=== PATIENT | female | born 1985 | race Caucasian/White ===

== ENCOUNTER 2019-06-11 12:24 | Emergency (ER) | payer OTHER ==
[2019-06-11 12:36] VITALS: BP 101/70; PULSE 81; TEMP 99.1; BMI 35.4
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
--- NOTE | 2019-06-11 12:45 | PDOC ---
Attending Attestation - Resident Resident Name: Kathy Gonzalez - HPI HPI: 06/13/19 09:12 Pt presents to the ED complaining of a one month history of R leg pain after falling down and escalator. PAtient has been ambulating since the injury, but states that today she had somewhat increased pain. Denies new injuries. - Physicial Exam PE: 06/13/19 09:29 agree with resident exam. Patient is alert and oriented and in no acute distress. tenderness at the knee and over the femur without deformity or ecchymosis. + well healed knee replacement scar. + slight effusion. Range of motion unchanged from previous as per patient. 06/13/19 09:29 - Medical Decision Making 06/13/19 09:30 pt presents to the ED complaining of subacute leg pain. Xrays show no fracture or other acute injury. PAtient is ambulatory. Will discharge home with instructions to follow up with PMD.
[2019-06-11] MEDS ORDERED: ACETAMINOPHEN 325 MG TABLET (FP) PO ONE (13:07)
[2019-06-11] MEDS ORDERED: KETOROLAC TROMETHAMINE 15 MG/ML VIAL IM ONE (13:07)
[2019-06-11] MEDS ORDERED: KETOROLAC TROMETHAMINE 15 MG/ML VIAL ONE (13:11)
[2019-06-11] MEDS ORDERED: ACETAMINOPHEN 325 MG TABLET (FP) ONE (13:11)
== END 2019-06-11 15:10 | disposition home or self-care (01) ==
LOC: FER 12:24
PROC: 3E0233Z Introduction of Anti-inflammatory into Muscle, Percutaneous Approach (ICD-10-PCS; principal; 2019-06-11)
DX: M79.605 Pain in left leg (principal); W10.9XXA Fall (on) (from) unspecified stairs and steps, initial encounter; Y93.89 Activity, other specified; Y92.89 Other specified places as the place of occurrence of the external cause
CPT/HCPCS: 73552-TC-LT-FY; 73564-TC-LT-FY; 84703; 99283-25

== ENCOUNTER 2021-06-13 14:03 | Emergency (ER) | payer OTHER ==
[2021-06-13 14:20] VITALS: BMI 31.2
[2021-06-13] MEDS ORDERED: ONDANSETRON 4 MG/2 ML VIAL IVPUSH ONE (15:19)
[2021-06-13] MEDS ORDERED: PANTOPRAZOLE SODIUM 40 MG VIAL IVPUSH ONE (15:19)
[2021-06-13] MEDS ORDERED: ACETAMINOPHEN 1000 MG/100 ML VIAL (NON FORMULARY) IVPB ONE (15:20)
[2021-06-13] MEDS ORDERED: SODIUM CHLORIDE 0.9% 500 ML INFUS.BAG IV ONE (15:26)
[2021-06-13] MEDS ORDERED: ACETAMINOPHEN INJECTION 100 ML IVPB ONE (16:07)
[2021-06-13] MEDS ORDERED: ONDANSETRON 4 MG/2 ML VIAL ONE (16:08)
[2021-06-13] MEDS ORDERED: PANTOPRAZOLE SODIUM 40 MG VIAL ONE (16:08)
[2021-06-13 16:33] LABS: BASO % 0.3 % (0-2.0); EOS % 1.1 % (0-4.5); HEMATOCRIT 39.2 % (32.4-45.2); HEMOGLOBIN 13.2 GM/dL (10.7-15.3); LYMPH % 21.3 % (8-40); MCH 30.2 pg (25.7-33.7); MCHC 33.8 g/dl (32.0-36.0); MEAN CELL VOLUME 89.3 fl (80-96); MEAN PLT VOLUME 8.8 fl (7.5-11.1); MONO % 11.8 % (3.8-10.2); NEUT % 65.5 % (42.8-82.8); PLATELET COUNT 219 10^3/uL (134-434); RBC 4.39 M/mm3 (3.60-5.2); RDW 14.5 % (11.6-15.6)
[2021-06-13 16:42] LABS: ALBUMIN 3.5 g/dl (3.4-5.0); BLOOD UREA NITROGEN 6.9 mg/dL (7-18)
[2021-06-13 16:45] LABS: CREATININE 0.6 mg/dL (0.55-1.3)
[2021-06-13 16:46] LABS: BILIRUBIN,TOTAL 0.6 mg/dL (0.2-1); TOT PROT 7.4 g/dl (6.4-8.2)
[2021-06-13 17:28] VITALS: TEMP 98.4
[2021-06-13 19:50] LABS: EPI CELLS 29 /uL (0-25.1); HYALINE CASTS 23 /uL (0-3.1); URINE APPEARANCE CLOUDY; URINE BACTERIA 426 /uL (0-1359); URINE BILIRUBIN 1+ (NEGATIVE); URINE COLOR DK YELLOW; URINE GLUCOSE (UA) NEGATIVE (NEGATIVE); URINE KETONE 3+ (NEGATIVE); URINE LEUK ESTERASE NEGATIVE (NEGATIVE); URINE NITRITE NEGATIVE (NEGATIVE); URINE PROTEIN 1+ (NEGATIVE); URINE RBC 12 /uL (0-23.9)
[2021-06-13 22:24] LABS: URINE WBC 175.5 /uL (0-25.8)
[2021-06-13 23:30] VITALS: BP 112/64; PULSE 70
== END 2021-06-13 23:25 | disposition home or self-care (01) ==
LOC: JER 14:03
PROC: 3E0333Z Introduction of Anti-inflammatory into Peripheral Vein, Percutaneous Approach (ICD-10-PCS; principal; 2021-06-13)
PROC: 3E033GC Introduction of Other Therapeutic Substance into Peripheral Vein, Percutaneous Approach (ICD-10-PCS; 2021-06-13)
PROC: 3E033GC Introduction of Other Therapeutic Substance into Peripheral Vein, Percutaneous Approach (ICD-10-PCS; 2021-06-13)
DX: R10.13 Epigastric pain (principal)
CPT/HCPCS: 36415; 74177-TC; 80053; 81003; 83690; 84703; 85025; 99285-25; J0131; Q9967

== ENCOUNTER 2021-07-10 09:02 | Emergency (ER) | payer OTHER ==
[2021-07-10 09:15] VITALS: BP 117/83; PULSE 94; TEMP 98; BMI 29.3
[2021-07-10] MEDS ORDERED: KETOROLAC TROMETHAMINE 30 MG/1 ML VIAL IM ONE (10:17)
[2021-07-10] MEDS ORDERED: KETOROLAC TROMETHAMINE 30 MG/1 ML VIAL ONE (10:37)
[2021-07-10 11:05] LABS: BASO % 0.4 % (0-2.0); EOS % 0.5 % (0-4.5); HEMATOCRIT 34.4 % (32.4-45.2); HEMOGLOBIN 11.7 GM/dL (10.7-15.3); LYMPH % 21.1 % (8-40); MCH 30.2 pg (25.7-33.7); MEAN CELL VOLUME 88.8 fl (80-96); MEAN PLT VOLUME 7.7 fl (7.5-11.1); MONO % 9.2 % (3.8-10.2); NEUT % 68.8 % (42.8-82.8); PLATELET COUNT 235 10^3/uL (134-434); RBC 3.88 M/mm3 (3.60-5.2); RDW 15.4 % (11.6-15.6); WHITE BLOOD COUNT 4.4 K/mm3 (4.0-10.0)
[2021-07-10 11:18] LABS: ALBUMIN 3.4 g/dl (3.4-5.0); CALCIUM 8.4 mg/dL (8.5-10.1)
[2021-07-10 11:19] LABS: BLOOD UREA NITROGEN 5.6 mg/dL (7-18); MAGNESIUM 1.8 mg/dL (1.8-2.4)
[2021-07-10 11:22] LABS: CREATININE 0.5 mg/dL (0.55-1.3)
[2021-07-10 11:23] LABS: BILIRUBIN,TOTAL 0.8 mg/dL (0.2-1); TOT PROT 7.2 g/dl (6.4-8.2)
[2021-07-17 03:08] LABS: VITAMIN E (B-GAMMA) 0.8 mg/L (0.7-4.9)
== END 2021-07-10 12:40 | disposition home or self-care (01) ==
LOC: JERFT 09:02
PROC: 3E0233Z Introduction of Anti-inflammatory into Muscle, Percutaneous Approach (ICD-10-PCS; principal; 2021-07-10)
DX: G90.09 Other idiopathic peripheral autonomic neuropathy (principal)
CPT/HCPCS: 36415; 80053; 82180; 82306; 82607; 82746; 83735; 84207; 84252; 84443; 84446; 84590; 84597; 85025; 86780; 99284-25

== ENCOUNTER 2021-07-18 15:40 | Emergency (ER) | payer OTHER ==
[2021-07-18 15:48] VITALS: TEMP 98.2; BMI 26.4
[2021-07-18] MEDS ORDERED: diazePAM 5 MG TABLET PO ONE (17:11)
[2021-07-18] MEDS ORDERED: ACETAMINOPHEN 500 MG TABLET (FP) PO ONE (17:21)
[2021-07-18] MEDS ORDERED: ACETAMINOPHEN 325 MG TABLET (FP) ONE (17:27)
[2021-07-18] MEDS ORDERED: diazePAM 5 MG TABLET ONE (17:28)
[2021-07-18 18:29] VITALS: BP 128/80; PULSE 78
== END 2021-07-18 18:29 | disposition home or self-care (01) ==
LOC: JER 15:40
DX: G62.9 Polyneuropathy, unspecified (principal)
CPT/HCPCS: 99283-25

== ENCOUNTER 2023-08-23 13:20 | Emergency (ER) | payer OTHER ==
[2023-08-23 13:29] VITALS: BP 91/47; PULSE 74; RESP 20; TEMP 98.9; BMI 26.5
[2023-08-23 15:34] LABS: EPI CELLS 33 /uL (0-25.1); HYALINE CASTS 1 /uL (0-3.1); PH,URINE 5.5 (5.0-8.0); URINE APPEARANCE CLOUDY; URINE BACTERIA >9,000 /uL (0-1359); URINE BILIRUBIN NEGATIVE (NEGATIVE); URINE COLOR YELLOW; URINE GLUCOSE (UA) NEGATIVE (NEGATIVE); URINE KETONE NEGATIVE (NEGATIVE); URINE LEUK ESTERASE 2+ (NEGATIVE); URINE NITRITE POSITIVE (NEGATIVE); URINE PROTEIN TRACE (NEGATIVE); URINE RBC 241 /uL (0-23.9); URINE UROBILINOGEN 0.2 mg/dL (0.2-1.0); URINE WBC 69 /uL (0-25.8)
[2023-08-23 15:37] LABS: BASO % 0.2 % (0-2.0); HEMATOCRIT 33.9 % (32.4-45.2); HEMOGLOBIN 11.2 GM/dL (10.7-15.3); LYMPH % 25.4 % (8-40); MCH 28.5 pg (25.7-33.7); MCHC 33.1 g/dl (32.0-36.0); MEAN CELL VOLUME 86.1 fl (80-96); MEAN PLT VOLUME 8.3 fl (7.5-11.1); MONO % 10.4 % (3.8-10.2); PLATELET COUNT 235 10^3/uL (134-434); RBC 3.93 M/mm3 (3.60-5.2); RDW 15.1 % (11.6-15.6); WHITE BLOOD COUNT 5.5 K/mm3 (4.0-10.0)
[2023-08-23 15:54] LABS: POTASSIUM 3.7 mmol/L (3.5-5.1)
[2023-08-23 15:56] LABS: CALCIUM 8.9 mg/dL (8.5-10.1)
[2023-08-23 15:57] LABS: ALBUMIN 3.6 g/dl (3.4-5.0)
[2023-08-23 16:00] LABS: CREATININE 0.6 mg/dL (0.55-1.3)
[2023-08-23 16:01] LABS: TOT PROT 7.1 g/dl (6.4-8.2)
[2023-08-23 16:02] LABS: BILIRUBIN,TOTAL 0.4 mg/dL (0.2-1)
[2023-08-23] MEDS ORDERED: CEPHALEXIN MONOHYDRATE 500 MG CAPSULE (UD) PO ONE (17:36)
[2023-08-23] MEDS ORDERED: CEPHALEXIN MONOHYDRATE 500 MG CAPSULE (UD) ONE (18:12)
== END 2023-08-23 20:00 | disposition home or self-care (01) ==
LOC: JER 13:20
DX: O20.9 Hemorrhage in early pregnancy, unspecified (principal); O26.891 Other specified pregnancy related conditions, first trimester; R10.9 Unspecified abdominal pain; Z3A.08 8 weeks gestation of pregnancy
CPT/HCPCS: 36415; 76817-TC; 80053; 81003; 84702; 85025; 86850; 86900; 86901; 87086; 87186; 99284-25

== ENCOUNTER 2024-03-29 06:05 | Inpatient (IN) | payer OTHER ==
[2024-03-29] MEDS: CITRIC ACID/SODIUM CITRATE 30 ML UNIT-DOSE CUP PO ONE (07:00)
[2024-03-29 07:07] VITALS: BMI 31.5
[2024-03-29] MEDS: ELECTROLYTE-148 SOLN 500 ML IV SCH (07:42)
[2024-03-29] MEDS: ELECTROLYTE-148 SOLN 500 ML IV ONE (07:42)
[2024-03-29] MEDS ORDERED: OXYTOCIN 30 UNITS in 0.9% NS 30 UNIT/500 ML INFUS.BAG IVPB ONE (08:08)
[2024-03-29] MEDS ORDERED: morphine SULFATE/PF 1 MG/2 ML (2cc Syringe - QUVA) ONE (08:09)
[2024-03-29] MEDS ORDERED: FENTANYL CITRATE/PF 50 MCG/ML VIAL ONE (08:09)
[2024-03-29] MEDS ORDERED: LIGASURE IMPACT TP ONE (08:16)
[2024-03-29] MEDS ORDERED: ceFAZolin SODIUM 1 GM VIAL ONE (08:28)
[2024-03-29] MEDS ORDERED: ePHEDrine SULFATE 50 MG/1 ML AMPULE ONE (08:28)
[2024-03-29] MEDS ORDERED: OXYTOCIN 10 UNITS/ML VIAL ONE (08:38)
[2024-03-29] MEDS ORDERED: OXYTOCIN 20 UNITS in 0.9% NS 20 UNIT/1,000 ML INFUS.BAG IV ONE (09:34)
[2024-03-29] MEDS ORDERED: METHYLERGONOVINE MALEATE 0.2 MG/1 ML AMP IM PRN (09:40)
[2024-03-29] MEDS: OXYTOCIN 20 UNITS in 0.9% NS 20 UNIT/1,000 ML INFUS.BAG IV SCH (09:45)
[2024-03-29] MEDS: FERROUS SO4 325 MG TABLET (FP) PO SCH (12:16)
[2024-03-29] MEDS: IBUPROFEN 800 MG/8 ML IJ IVPB PRN (14:45)
[2024-03-29] MEDS: PRENATAL VITAMINS W/ FOLIC ACID TABLET (FP) PO SCH (14:53)
[2024-03-29] MEDS: IBUPROFEN 600 MG TABLET (FP) PO PRN (21:10)
[2024-03-30] MEDS: ACETAMINOPHEN 325 MG TABLET (FP) PO PRN (05:17)
[2024-03-30 07:43] LABS: BASO % 0.1 % (0-2.0); EOS % 0.5 % (0-4.5); HEMATOCRIT 31.3 % (32.4-45.2); HEMOGLOBIN 10.6 GM/dL (10.7-15.3); LYMPH % 14.2 % (8-40); MCHC 33.9 g/dl (32.0-36.0); MEAN CELL VOLUME 97.1 fl (80-96); MEAN PLT VOLUME 8.6 fl (7.5-11.1); MONO % 7.5 % (3.8-10.2); NEUT % 77.7 % (42.8-82.8); PLATELET COUNT 143 10^3/uL (134-434); RBC 3.22 M/mm3 (3.60-5.2); RDW 13.4 % (11.6-15.6); WHITE BLOOD COUNT 7.2 K/mm3 (4.0-10.0)
[2024-03-30] MEDS: SIMETHICONE 80 MG TAB.CHEW (FP) PO PRN (08:34)
[2024-03-30] MEDS: FLU VACCINE (FLULAVAL) PF 60 MCG/0.5 ML SYRINGE 2023-2024 IM ONE (09:37)
[2024-03-30] MEDS ORDERED: BISACODYL 10 MG SUPP.RECT RC PRN (09:40)
[2024-03-31] MEDS: oxyCODONE HCL 5 MG TABLET PO PRN (03:15)
[2024-04-01 06:36] LABS: BASO % 0.2 % (0-2.0); EOS % 2.3 % (0-4.5); HEMATOCRIT 31.6 % (32.4-45.2); HEMOGLOBIN 10.6 GM/dL (10.7-15.3); LYMPH % 31.4 % (8-40); MCH 32.7 pg (25.7-33.7); MCHC 33.5 g/dl (32.0-36.0); MEAN CELL VOLUME 97.5 fl (80-96); MEAN PLT VOLUME 8.1 fl (7.5-11.1); NEUT % 54.1 % (42.8-82.8); PLATELET COUNT 169 10^3/uL (134-434); RBC 3.24 M/mm3 (3.60-5.2); RDW 13.8 % (11.6-15.6); WHITE BLOOD COUNT 4.7 K/mm3 (4.0-10.0)
[2024-04-01 11:47] VITALS: BP 97/66; PULSE 73; RESP 17; TEMP 98.3
== END 2024-04-01 14:00 | disposition home or self-care (01) | DRG 540 ==
LOC: JLDR 06:05 → J3W 11:30
PROVIDERS: ADMIT Obstetrics & Gynecology; ATTEND Obstetrics & Gynecology
PROC: 10D00Z1 Extraction of Products of Conception, Low, Open Approach (ICD-10-PCS; principal; 2024-03-29)
PROC: 0UB70ZZ Excision of Bilateral Fallopian Tubes, Open Approach (ICD-10-PCS; 2024-03-29)
DX: O34.219 Maternal care for unspecified type scar from previous cesarean delivery (principal); Z3A.39 39 weeks gestation of pregnancy; Z37.0 Single live birth; Z30.2 Encounter for sterilization
CPT/HCPCS: 36415; 80053; 85025; 85610; 85730; 86780; 86850; 86900; 86901; 88305-TC; 88307-TC; 90686; G0008